=== PATIENT | female | born 1955 | race Caucasian/White ===

== ENCOUNTER 2018-01-02 06:52 | Day surgery (SDC) | payer OTHER ==
[2018-01-02] MEDS ORDERED: MIDAZOLAM HCL 5 MG/5 ML VIAL ONE (07:15)
[2018-01-02] MEDS ORDERED: MEPERIDINE HCL/PF 100 MG/ML AMP ONE ×2 (07:15→09:29)
[2018-01-02] MEDS ORDERED: SIMETHICONE 40 MG/0.6 ML ML ONE (07:15)
[2018-01-02 14:00] VITALS: BP_SYST 112
== END 2018-01-02 10:40 | disposition home or self-care (01) ==
LOC: SDS 06:52 → SMU 07:01 → SDS 10:40
PROVIDERS: ATTEND Internal Medicine Gastroenterology
PROC: 0DBL8ZX Excision of Transverse Colon, Via Natural or Artificial Opening Endoscopic, Diagnostic (ICD-10-PCS; 2018-01-02)
PROC: 0DB58ZX Excision of Esophagus, Via Natural or Artificial Opening Endoscopic, Diagnostic (ICD-10-PCS; principal; 2018-01-02 09:20)
PROC: 0DBK8ZX Excision of Ascending Colon, Via Natural or Artificial Opening Endoscopic, Diagnostic (ICD-10-PCS; 2018-01-02 09:20)
DX: K44.9 Diaphragmatic hernia without obstruction or gangrene (principal); K29.70 Gastritis, unspecified, without bleeding; K22.10 Ulcer of esophagus without bleeding; D12.2 Benign neoplasm of ascending colon; D12.3 Benign neoplasm of transverse colon; I10 Essential (primary) hypertension; E78.5 Hyperlipidemia, unspecified; E03.9 Hypothyroidism, unspecified; Z86.711 Personal history of pulmonary embolism; Z79.01 Long term (current) use of anticoagulants; Z96.641 Presence of right artificial hip joint
CPT/HCPCS: 43239; 45385; 36415; 87081; 88305; 88312; 88313; J2175; J2250; 45384